=== PATIENT | female | born 1975 | race Caucasian/White ===

== ENCOUNTER 2022-03-24 16:28 | Outpatient (CLI) | payer OTHER, SELFPAY | END 2022-03-24 16:29 | disposition home or self-care (01) | PROVIDERS: PCP Emergency Medicine; Visit Provider Emergency Medicine | DX: Z01.818 Encounter for other preprocedural examination (principal) | CPT/HCPCS: 80048 ==

== ENCOUNTER 2022-03-26 07:33 | Outpatient (CLI) | payer OTHER, SELFPAY ==
--- NOTE | 2022-03-26 08:54 | W.ANESCHARGE ---
Anesthesia Charges Start Date/Time Anesthesia Start Date: 03/26/22 Anesthesia Start Time: 08:30 Stop Date/Time Anesthesia Stop Date: 03/26/22 Anesthesia Stop Time: 08:50 Summary Emergency: No
--- NOTE | 2022-03-26 09:06 | W.ANESCHARGE ---
Anesthesia Charges Start Date/Time Anesthesia Start Date: 03/26/22 Anesthesia Start Time: 08:30 Stop Date/Time Anesthesia Stop Date: 03/26/22 Anesthesia Stop Time: 08:50 Summary Emergency: No
== END 2022-03-26 07:34 | disposition home or self-care (01) ==
LOC: OP CLINIC 07:34
PROVIDERS: PCP Emergency Medicine; Visit Provider Internal Medicine
PROC: 0DJ08ZZ Inspection of Upper Intestinal Tract, Via Natural or Artificial Opening Endoscopic (ICD-10-PCS; principal; 2022-03-26 08:30)
DX: R19.8 Other specified symptoms and signs involving the digestive system and abdomen (principal); K31.7 Polyp of stomach and duodenum
CPT/HCPCS: 43239; 731; 88305; J2704

== ENCOUNTER 2022-04-22 09:02 | Outpatient (CLI) | payer OTHER, SELFPAY ==
--- NOTE | 2022-04-22 09:15 | CRLHL7_ITS ---
For Patients: As a result of the Century Cures Act, medical imaging exams and procedure reports are released immediately into your electronic medical record. You may view this report before your referring provider. If you have questions, please contact your health care provider. INDICATION: Right upper quadrant abdominal pain. Nausea. TECHNIQUE: Right upper quadrant ultrasound. FINDINGS: Cholelithiasis without ultrasound evidence for acute cholecystitis. The gallbladder wall measures 3 mm. No sonographic Yeh`s sign. The common bile duct measures between 5 and 7 mm. The liver is within normal limits. Normal-appearing pancreas. No hydronephrosis of the right kidney which measures 9.7 x 4.3 x 4.5 cm. No right upper quadrant ascites. IMPRESSION: Cholelithiasis. No ultrasound evidence for acute cholecystitis. Dictated by Theo Phipps MD @ 04/22/2022 9:59:21 AM (Electronically Signed)
== END 2022-04-22 09:03 | disposition home or self-care (01) ==
PROVIDERS: PCP Emergency Medicine; Visit Provider Emergency Medicine
DX: R10.11 Right upper quadrant pain (principal); K80.20 Calculus of gallbladder without cholecystitis without obstruction; R11.0 Nausea
CPT/HCPCS: 76705

== ENCOUNTER 2022-05-11 17:56 | Outpatient (CLI) | payer OTHER, SELFPAY ==
[2022-05-11 21:52] LABS: Chloride* 102 mmol/L (96-114); Sodium* 137 mmol/L (135-149)
[2022-05-11 21:55] LABS: Carbon Dioxide* 28 mmol/L (20-32); Creatinine* 0.7 mg/dL (0.5-1.5); Estimated Glomerular Filt Rate 107 ml/min
[2022-05-11 21:56] LABS: Blood Urea Nitrogen* 9 mg/dL (5-24); Calcium* 9.5 mg/dL (8.4-10.6); Glucose* 92 mg/dL (60-115)
== END 2022-05-11 17:57 | disposition home or self-care (01) ==
PROVIDERS: PCP Emergency Medicine; Visit Provider Emergency Medicine
DX: Z01.818 Encounter for other preprocedural examination (principal)
CPT/HCPCS: 80048

== ENCOUNTER 2022-05-13 10:09 | Day surgery (SDC) | payer OTHER, SELFPAY ==
[2022-05-13] VITALS (12 sets, daily range): BP systolic 118–148; BP diastolic 71–88; PULSE 66–89; RESP 16; TEMP 36–36.7; O2SAT 93–98; BMI 32.0
[2022-05-13] MEDS: SODIUM CHLORIDE 0.9 % (FLUSH) 10 ML SYRINGE IVF (10:25)
[2022-05-13] MEDS: LACTATED RINGERS 1000 ML 1,000 ML 100 ML IV (10:25)
[2022-05-13 10:27] LABS: HCG Qualitative* Negative (Negative)
[2022-05-13] MEDS: CLINDAMYCIN 900 MG/6 ML VIAL IVPB (11:00)
[2022-05-13] MEDS: BUPIVACAINE 0.5% 30 ML 20 ML INJECTION (11:08)
--- NOTE | 2022-05-13 12:12 | PM.GSPRC ---
Operative Note Date of procedure: 05/13/22 Type of Procedure: Laparoscopic cholecystectomy Procedure Description: After discussing the risks and benefits of the procedure, the patient signed informed consent.? The operative site was marked and the patient was brought to the operating room and placed on the operating table in supine position.? Care was taken to pad the patient's pressure points.?? The patient was then intubated by anesthesia.?? The operative site was then prepped and draped in the usual sterile fashion.? A time-out was then performed. Entrance to the abdomen was gained via a 5 mm Visiport in the left upper quadrant. The abdomen was insufflated and briefly surveyed for signs of injury. There was none. 11 mm umbilical port was placed as well as 2 working ports along the right costal margin. Patient was then placed in reverse Trendelenburg position with the right side up. The gallbladder fundus was grasped and retracted cephalad. [A small amount of dissection was needed to free omental adhesions from the gallbladder.] The infundibulum was grasped. A combination of hook cautery and blunt dissection was used to carefully dissect out the cystic duct and artery until they could clearly be seen entering the gallbladder without any intervening structures. The gallbladder was dissected off the cystic plate to achieve the critical view. Once this was achieved the cystic duct and artery were each clipped with 2 clips proximally and 1 clip distally and transected with the scissors. The gallbladder was then taken off of the liver bed. And removed from the abdomen using an Endo-Catch bag. The gallbladder bed was surveyed for hemostasis. the ports were then removed under direct vision. The umbilical port fascia was closed with 0 Vicryl. The skin was closed with absorbable subcuticular suture. Instrument sponge and needle counts were correct at the end of the case. The patient was then woken and transferred to the PACU in stable condition. ? Findings: Cholelithiasis, without evidence of cholecystitis. Anesthesia: GETA Surgeon: Dora Reyna MD Estimated blood loss (mL): 5 Condition: stable Disposition: same day
--- NOTE | 2022-05-13 12:23 | W.ANESCHARGE ---
Anesthesia Charges Start Date/Time Anesthesia Start Date: 05/13/22 Anesthesia Start Time: 10:47 Stop Date/Time Anesthesia Stop Date: 05/13/22 Anesthesia Stop Time: 12:23 Summary Emergency: No
[2022-05-13] MEDS: OXYCODONE 5 MG TABLET PO ×2 (13:15→14:10)
== END 2022-05-13 14:15 | disposition home or self-care (01) ==
PROVIDERS: Nurse Anesthetist, Certified Registered; PCP Emergency Medicine; Visit Provider Surgery
PROC: 0FT44ZZ Resection of Gallbladder, Percutaneous Endoscopic Approach (ICD-10-PCS; CPT 47562; principal; 2022-05-13 11:30)
DX: K80.10 Calculus of gallbladder with chronic cholecystitis without obstruction (principal)
CPT/HCPCS: 47562; 00790; 84703; 88304; A9270; J0330; J1100; J1170; J1885; J2250; J2405; J2704; J2710; J3010; J3490; J7120; S0077

== ENCOUNTER 2022-07-21 08:20 | Outpatient (CLI) | payer OTHER, SELFPAY | END 2022-07-21 08:21 | disposition home or self-care (01) | LOC: LKVREF 08:20 | PROVIDERS: PCP Emergency Medicine; Visit Provider Emergency Medicine | DX: J32.9 Chronic sinusitis, unspecified (principal); R05.9 Cough, unspecified | CPT/HCPCS: 80076; 83690 ==

== ENCOUNTER 2022-07-28 07:56 | Outpatient (CLI) | payer OTHER, SELFPAY | END 2022-07-28 07:57 | disposition home or self-care (01) | PROVIDERS: PCP Emergency Medicine; Visit Provider Surgery | DX: R12 Heartburn (principal); R10.13 Epigastric pain; K76.0 Fatty (change of) liver, not elsewhere classified | CPT/HCPCS: 74177; Q9967 ==

== ENCOUNTER 2022-08-27 08:44 | Outpatient (CLI) | payer OTHER, SELFPAY ==
[2022-08-27 12:27] LABS: Chloride* 106 mmol/L (96-114)
[2022-08-27 12:28] LABS: Potassium* 4.4 mmol/L (3.6-5.1); Sodium* 139 mmol/L (135-149)
[2022-08-27 12:31] LABS: Blood Urea Nitrogen* 14 mg/dL (5-24); Carbon Dioxide* 26 mmol/L (20-32); Cholesterol* 241 mg/dL (90-199); Creatinine* 0.7 mg/dL (0.5-1.5); Estimated Glomerular Filt Rate 107 ml/min; Glucose* 92 mg/dL (60-115)
[2022-08-27 12:32] LABS: Calcium* 9.5 mg/dL (8.4-10.6); HDL Cholesterol* 77 mg/dL (>=50); LDL Cholesterol Calculated 123 mg/dL (<100); Triglycerides* 203 mg/dL (40-149)
== END 2022-08-27 08:45 | disposition home or self-care (01) ==
LOC: LKVREF 08:45
PROVIDERS: Physician Assistant Medical; PCP Emergency Medicine; Visit Provider Emergency Medicine
DX: Z01.419 Encounter for gynecological examination (general) (routine) without abnormal findings (principal); E78.5 Hyperlipidemia, unspecified
CPT/HCPCS: 80048; 80061

== ENCOUNTER 2022-10-19 18:28 | Outpatient (CLI) | payer OTHER, SELFPAY ==
[2022-10-19 21:39] LABS: Chloride* 105 mmol/L (96-114); Potassium* 4.3 mmol/L (3.6-5.1); Sodium* 139 mmol/L (135-149)
[2022-10-19 21:42] LABS: Blood Urea Nitrogen* 15 mg/dL (5-24); Carbon Dioxide* 27 mmol/L (20-32); Estimated Glomerular Filt Rate 69 ml/min
[2022-10-19 21:43] LABS: Calcium* 9.4 mg/dL (8.4-10.6); Glucose* 111 mg/dL (60-115)
== END 2022-10-19 18:29 | disposition home or self-care (01) ==
LOC: LKVREF 18:29
PROVIDERS: PCP Emergency Medicine; Visit Provider Emergency Medicine
DX: Z01.818 Encounter for other preprocedural examination (principal)
CPT/HCPCS: 80048

== ENCOUNTER 2022-11-02 07:20 | Outpatient (CLI) | payer OTHER, SELFPAY ==
--- NOTE | 2022-11-02 08:43 | W.ANESCHARGE ---
Anesthesia Charges Start Date/Time Anesthesia Start Date: 11/02/22 Anesthesia Start Time: 08:02 Stop Date/Time Anesthesia Stop Date: 11/02/22 Anesthesia Stop Time: 08:39
--- NOTE | 2022-11-02 09:47 | W.ANESCHARGE ---
Anesthesia Charges Start Date/Time Anesthesia Start Date: 11/02/22 Anesthesia Start Time: 08:02 Stop Date/Time Anesthesia Stop Date: 11/02/22 Anesthesia Stop Time: 08:39
== END 2022-11-02 07:21 | disposition home or self-care (01) ==
PROVIDERS: PCP Emergency Medicine; Visit Provider Surgery
DX: Z12.11 Encounter for screening for malignant neoplasm of colon (principal); K63.5 Polyp of colon; K62.1 Rectal polyp; K64.4 Residual hemorrhoidal skin tags
CPT/HCPCS: 00811; 45380; 45385; 88305; J2704

== ENCOUNTER 2023-11-08 08:50 | Outpatient (CLI) | payer OTHER, SELFPAY | END 2023-11-08 08:51 | disposition home or self-care (01) | LOC: NFLDREF 11-09 06:19 | PROVIDERS: PCP Emergency Medicine; Visit Provider Emergency Medicine | DX: E78.1 Pure hyperglyceridemia (principal); E78.5 Hyperlipidemia, unspecified | CPT/HCPCS: 80053; 80061 ==

== ENCOUNTER 2024-12-07 08:19 | Outpatient (CLI) | payer OTHER, SELFPAY | END 2024-12-07 08:20 | disposition home or self-care (01) | LOC: NFLDREF 12-10 01:58 | PROVIDERS: PCP Emergency Medicine; Referring Provider Emergency Medicine; Visit Provider Emergency Medicine | DX: E78.1 Pure hyperglyceridemia (principal); E78.2 Mixed hyperlipidemia | CPT/HCPCS: 80048; 80061 ==

== ENCOUNTER 2025-03-19 08:15 | Outpatient (CLI) | payer OTHER, SELFPAY | END 2025-03-19 08:16 | disposition home or self-care (01) | LOC: NFLDREF 03-21 17:34 | PROVIDERS: PCP Emergency Medicine; Referring Provider Emergency Medicine; Visit Provider Emergency Medicine | DX: E78.2 Mixed hyperlipidemia (principal) | CPT/HCPCS: 80061 ==